=== PATIENT | female | born 1960 | race Caucasian/White ===

== ENCOUNTER 2016-08-30 08:07 | Emergency (ER) | payer OTHER ==
[~2016-08-30] VITALS: Ht 162.6 cm; Wt 77.1 kg
[~2016-08-30 08:07] MED LIST: DOXYCYCLINE HY100 M4 PO; LEVOTHYROXINE75 MCG PO
--- NOTE | 2016-08-30 08:25 | ED AMS/SEIZURE/WEAK/DIZZY ---
History of Present Illness General Chief Complaint: Dizziness Stated Complaint: DIZZINESS CHEST PRESSURE Source: patient, old records Exam Limitations: no limitations Vital Signs & Intake/Output Vital Signs & Intake/Output Vital Signs Date Time Temp Pulse Resp B/P Pulse O2 O2 Flow FiO2 Ox Delivery Rate 08/30 0956 97.6 50 16 136/61 98 Room Air 08/30 0815 98.3 63 20 166/91 98 Room Air Allergies Coded Allergies: sulfamethoxazole (From BACTRIM) (Severe, RASH, "FELT SICK" 08/30/16) trimethoprim (From BACTRIM) (Severe, RASH, "FELT SICK" 08/30/16) Reconcile Medications Ergocalciferol (Vitamin D2) (Vitamin D2) 50,000 UNIT CAPSULE 1 CAP PO QMON SUPPLEMENT (Reported) Levothyroxine Sodium 88 MCG TABLET 1 TAB PO DAILY AC THYROID (Reported) Triage Note: TRIAGE: PT TO ER C/C S/S OF FEELING TIRED, LIGHTHEADED/DIZZY, "A FEELING IN MY CHEST BUT IT'S NOT PAIN, BLOATING IN HANDS AND BACK OF NECK IS "IRRITATED". DENIES ANY PAIN WHEN ASKED TO RATE PAIN OR DISCOMFORT 0/10. -SOB, -DIAPHORESIS. WAS REFERRED TO DR MORALES X 1 YR FOR EPISODE OF LOW HEART RATE. HAD STRESS TEST WHICH WAS "GOOD". HAD EKG IN [place] PRIOR TO TRIAGE Triage Nurses Notes Reviewed? yes Onset: Gradual Duration: constant, waxing and waning Timing: recent history Injury Environment: home Severity: mild Severity Numbers: 5 No Modifying Factors: none Associated Symptoms: lightheadedness HPI: 55-year-old female history of hypothyroid presents emergency room complaining of feeling lethargic, lightheaded for the past 5 days associated with a 2 day history of a "funny feeling in her chest" the patient denies pain pressure or heaviness over her chest and cannot explain the sensation she has intermittently. The symptoms came on while at rest yesterday. She denies worsening of symptoms with treated physician. No change in her appetite or nausea vomiting abdominal pain fever or chills cough congestion. No sick contacts recent travel. The patient has a history of a resting bradycardia for which she states she's been seen by Dr. Morales within the past year and had a negative stress test at that time. She recently had her Synthroid increased to 80 mg within the past 1 month. There are no other modifying factors or associated symptoms otherwise no black or bloody stools. Past History Travel History Traveled to [place] past 21 day No Medical History Any Pertinent Medical History? see below for history Neurological: NONE EENT: NONE Cardiovascular: bradycardia Respiratory: NONE Gastrointestinal: NONE Hepatic: NONE Renal: NONE Musculoskeletal: NONE Psychiatric: NONE Endocrine: hypothyroidism Blood Disorders: NONE Cancer(s): NONE RESEARCH PHARMACIST/Reproductive: NONE Surgical History Surgical History: non-contributory Psychosocial History What is your primary language Brazilian Tobacco Use: Never used ETOH Use: occasional use Illicit Drug Use: denies illicit drug use Family History Hx Contributory? No Review of Systems Review of Systems Constitutional: Reports: see HPI. All Other Systems: Reviewed and Negative Comments Review of systems: See HPI, All other systems negative. Constitutional, no chills no fever, no malaise no weight loss HEENT: No visual changes no sore throat no congestion, no ear pain Cardiovascular: No chest pain , no palpitation , no orthopnea no ankle swelling Skin, no jaundice no rashes, no change in skin Respiratory: No dyspnea no cough no sputum no hemoptysis GI: No nausea no vomiting, no diarrhea, no bloating/constipation : No dysuria No hematuria, no frequency, Muscle skeletal: No joint pain, no joint swelling, no back pain, no neck pain, Neurologic: No numbness no confusion, no headache Psych: stress . Heme/endocrine: No bruising no bleeding no polyuria no polydipsia Immunology: No lymphadenopathy, Physical Exam Physical Exam General Appearance: well developed/nourished, no apparent distress, alert, awake Comments: Well-developed well-nourished person in no acute distress HEENT: Normal EENT exam; PERRL, EOMI, no nystagmus. HEAD is atraumatic. moist mucous membranes. Neck: Supple, no lymphadenopathy, normal range of motion Back: Nontender, ull range of motion Cardiovascular: Regular rate and rhythms no murmurs rubs or gallops, normal JVP Respiratory: Chest nontender.There were no bony deformities, no asymmetry. No respiratory distress. Patient speaking in full complete sentences. Breath sounds clear to auscultation bilaterally: NO W/R/R Abdomen: Soft, nontender nondistended, no appreciable organomegaly. Normal bowel sounds. No rebound/guarding, Extremity: No edema, full range of motion of extremities Neuro: Alert oriented x3, motor sensory normal, There were no obvious focal neurologic abnormalities. Skin: No appreciable rash on exposed skin, skin is warm and dry. Psych: Mood and affect is normal, memory and judgment is normal. Core Measures ACS in differential dx? Yes CVA/TIA Diagnosis: No Severe Sepsis Present: No Septic Shock Present: No Progress Differential Diagnosis: arrythmia, anemia, benign positional vertigo, dehydration, drug intoxication, electrolyte imbalance, GI bleed, hypoglycemia, vertebrobasilar insuff, ami Plan of Care: Orders Procedure Date/time Status THYROID STIMULATING HORMONE 08/30 833 Complete URINALYSIS 08/30 826 Complete Telemetry/Printed Circuit Boards Laminator 08/30 825 Active TROPONIN LEVEL 08/30 825 Complete MAGNESIUM 08/30 825 Complete COMPREHENSIVE METABOLIC PANEL 08/30 825 Complete CBC WITHOUT DIFFERENTIAL 08/30 825 Complete B-TYPE NATRIURETIC PEP (BNP) 08/30 825 Complete EKG 08/30 808 Active Laboratory Tests 08/30/16 0834: Anion Gap 7, Estimated GFR > 60, BUN/Creatinine Ratio 16.3, Glucose 106 H, Calcium 10.0, Magnesium 1.8, Total Bilirubin 0.5, AST 24, ALT 36, Alkaline Phosphatase 86, Troponin I < 0.01, Irj-R-Irqmetbmher Pept 107, Total Protein 7.6 , Albumin 4.4, Globulin 3.2, Albumin/Globulin Ratio 1.4, TSH 1.780, CBC w Diff NO MAN DIFF REQ, RBC 4.50, MCV 87.5, MCH 29.1, RDW 12.6, MPV 7.1 L, Gran % 34.9 L, Lymphocytes % 52.4 H, Monocytes % 6.4, Eosinophils % 5.8 H, Basophils % 0.5, Absolute Granulocytes 2.6, Absolute Lymphocytes 3.8 H, Absolute Monocytes 0.5, Absolute Eosinophils 0.4, Absolute Basophils 0, PUBS MCHC 33.3 08/30/16 0830: Urinalysis LIGHT H, Urine Color YEL, Urine Clarity HAZY H, Urine pH 6.0, Ur Specific [place] 1.020, Urine Protein NEG, Urine Ketones NEG, Urine Nitrite NEG, Urine Bilirubin NEG, Urine Urobilinogen 0.2, Ur Leukocyte Esterase SMALL H, Ur Microscopic SEDIMENT EXAMINED, Urine WBC 5-10 H, Ur Epithelial Cells MOD H, Urine Bacteria FEW H, Urine Hemoglobin NEG, Urine Glucose NEG 08/30/16 0828: TSH Cancelled Labs ordered old records reviewed, case discussed with Dr. Brush who agrees the plan. 1020 I discussed with the patient at length all of her lab results she is feeling improved she's been normal sinus in the 60s to 70s on the monitor. Symptoms of present for greater than 48 hours I do not believe she requires repeat troponin and her lab work. She feels comfortable this plan I discussed with the patient at length all of their results. I had an extensive conversation regarding need for close follow up with their primary care physician this week as well as return precautions. I answered all of their questions, they feel comfortable with the plan and follow-up care. I discussed the medications that they will receive with the patient. I gave them signs and symptoms that could indicate an adverse reaction. I have advised them to limit their activities until they can see how they respond to the medication. (DILSHAD HERMAN,AME) Diagnostic Imaging: Viewed by Me: Radiology Read. Discussed w/RAD: Radiology Read. Radiology Impression: PATIENT: SELENA MORENO PRESENT AGE: 55 PATIENT ACCOUNT NO: [id number] : 56 LOCATION: [facility] ORDERING PHYSICIAN: AME HERMAN SERVICE DATE: 08/30/16 EXAM TYPE: RAD - XRY-CHEST XRAY, PA AND LATERAL EXAMINATION: XR CHEST CLINICAL INFORMATION: Evaluate for cardiomegaly. Chest heaviness. COMPARISON: None TECHNIQUE: 2 views of the chest were obtained. FINDINGS: Normal cardiomediastinal silhouette. Lungs are clear. Bony thorax is intact. IMPRESSION: No acute pulmonary disease. DICTATED BY: RYAN MONTE MD DATE/TIME DICTATED:08/30/16857 TIPPLE ENGINEER:LETA DATE/TIME TRANSCRIBED:08/30/16857 CONFIDENTIAL, DO NOT COPY WITHOUT APPROPRIATE AUTHORIZATION. <Electronically signed in Other Vendor System> SIGNED BY: RYAN MONTE MD 08/30/16 0902 Initial ED EKG: normal sinus at 70, no acute ST segment changes and normal axis Prior EKG: unchanged (01/2015) Rhythm Strip: normal sinus rhythm (60s) Departure Departure Time of Disposition: 1017 Disposition: HOME OR SELF CARE Condition: Stable Clinical Impression Primary Impression: Lightheadedness Referrals: CONNOR PALMA,RO Phillips (PCP/Family) Additional Instructions: Follow-up with your primary care physician this week. Continue taking your medication as prescribed and return to ER anytime sooner if any concerns. Departure Forms: Customer Survey General Discharge Information ED Attending Observation Initial Observation Note: I have seen and personally examined SELENA MORENO on 08/30/16 at 0859. I agree with the current emergency department documentation. The disposition (admission or discharge) is uncertain at this time, she needs a period of observation for the following reason(s): The ED Nurse caring for this patient has been personally informed as to what the patient is being observed for.
[2016-08-30 08:41] LABS: ABSOLUTE BASOPHIL COUNT 0 /CUMM (0.0-0.2); ABSOLUTE EOSINOPHIL COUNT 0.4 /CUMM (0.0-0.7); ABSOLUTE GRANULOCYTE CT 2.6 /CUMM (1.4-6.5); ABSOLUTE LYMPH COUNT 3.8 /CUMM (1.2-3.4); ABSOLUTE MONOCYTE COUNT 0.5 /CUMM (0.10-0.60); BASOPHIL % 0.5 % (0.0-2.0); EOSINOPHIL % 5.8 % (0-5); HEMATOCRIT 39.4 % (37-47); MEAN CORPUSCULAR HGB 29.1 PG (27.0-31.0); MEAN CORPUSCULAR HGB CONC 33.3 G/DL (33.0-37.0); MEAN CORPUSCULAR VOLUME 87.5 FL (81.0-99.0); MEAN PLATELET VOLUME 7.1 FL (7.4-10.4); RBC DISTRIBUTION WIDTH 12.6 % (11.5-14.5); WHITE BLOOD CELL COUNT 7.3 /CUMM (4.8-10.8)
[2016-08-30] MEDS ORDERED: LEVOTHYROXINE88 MCG PO (08:58)
[2016-08-30] MEDS ORDERED: VITAMIN D250000 UNIT PO (08:59)
--- NOTE | 2016-08-30 09:02 | RADIOLOGY REPORT ---
EXAMINATION: XR CHEST CLINICAL INFORMATION: Evaluate for cardiomegaly. Chest heaviness. COMPARISON: None TECHNIQUE: 2 views of the chest were obtained. FINDINGS: Normal cardiomediastinal silhouette. Lungs are clear. Bony thorax is intact. IMPRESSION: No acute pulmonary disease.
[2016-08-30 09:06] LABS: PLATELET COUNT 355 /CUMM (130-400)
[2016-08-30 09:07] LABS: GRANULOCYTE % 34.9 % (42.2-75.2)
[2016-08-30 09:56] VITALS: BP 136/61
== END 2016-08-30 10:24 ==
LOC: ERH 08:07
PROVIDERS: Physician Assistant Medical
DX: R42 Dizziness and giddiness (principal); R07.89 Other chest pain
CPT/HCPCS: 81001; 93005; 93010

== ENCOUNTER 2017-07-30 07:47 | Emergency (ER) | payer OTHER ==
[~2017-07-30] VITALS: Ht 165.1 cm; Wt 69.4 kg
[~2017-07-30 07:47] MED LIST changes: +LEVOTHYROXINE88 MCG PO; +VITAMIN D250000 UNIT PO
--- NOTE | 2017-07-30 08:43 | ED GENERAL ADULT ---
History of Present Illness General Chief Complaint: General Adult Stated Complaint: PT FEELS TINGLING ARMS, "FEELS WEIRD IN CHEST" Source: patient, family Exam Limitations: no limitations Vital Signs & Intake/Output Vital Signs & Intake/Output Vital Signs Date Time Temp Pulse Resp B/P B/P Pulse O2 O2 Flow FiO2 Mean Ox Delivery Rate 07/30 1130 97.7 52 12 128/68 99 Room Air 07/30 0800 96.9 48 16 168/90 96 Room Air Allergies Coded Allergies: sulfamethoxazole (From BACTRIM) (Severe, RASH, "FELT SICK" 08/30/16) trimethoprim (From BACTRIM) (Severe, RASH, "FELT SICK" 08/30/16) Reconcile Medications Ergocalciferol (Vitamin D2) (Vitamin D2) 50,000 UNIT CAPSULE 1 CAP PO QMON SUPPLEMENT (Reported) Levothyroxine Sodium 88 MCG TABLET 1 TAB PO DAILY AC THYROID (Reported) Triage Note: PT TO ED FOR ARM TINGLING AND CHEST "FUNNY FEELING" SINCE SEEING DR MORALES ON TUESDAY, PT REPORTING SHE HAS A HX OF BRADYCARDIA (NORMAL RATE 46-49) AND SEES HIM EVERY THREE MONTHS. REPORTING THEY HAD A DISCUSSION ABOUT POSSIBLY PLACING A PACEMAKER AND SINCE THAT APT "I'VE JUST FELT WIERD" DENIES ANY CP, SOB, KEITH, DIZZINESS. Triage Nurses Notes Reviewed? yes Onset: Abrupt Duration: hour(s): Timing: recent history HPI: 07/30/17 9 AM 56-year-old female presents to the emergency department for aching chest pain, back pain, and bilateral arm numbness. She says that she has a history of bradycardia and saw Dr. Morales on Tuesday. She also admits to kiya torrez on Tuesday. She says she felt fine however when she saw Dr. Morales immediately afterwards when she was told that she might need a pacemaker she started to develop dull aching and her chest. Currently she feels somewhat better. She also has a history of hypothyroidism. Past History Travel History Traveled to [place] past 21 day No Medical History Any Pertinent Medical History? see below for history Neurological: NONE EENT: NONE Cardiovascular: bradycardia Respiratory: NONE Gastrointestinal: NONE Hepatic: NONE Renal: NONE Musculoskeletal: NONE Psychiatric: NONE Endocrine: hypothyroidism Blood Disorders: NONE Cancer(s): NONE SURGICAL COORDINATOR/Reproductive: NONE Surgical History Surgical History: tubal ligation Psychosocial History What is your primary language Telugu Tobacco Use: Never used ETOH Use: denies use Illicit Drug Use: denies illicit drug use Family History Hx Contributory? No Review of Systems Review of Systems Constitutional: Denies: fever. EENTM: Reports: no symptoms. Respiratory: Denies: short of breath. Cardiovascular: Reports: see HPI. GI: Denies: abdominal pain. Genitourinary: Reports: no symptoms. Musculoskeletal: Reports: see HPI. Skin: Denies: rash. Neurological/Psychological: Reports: see HPI. Hematologic/Endocrine: Reports: no symptoms. Immunologic/Allergic: Reports: no symptoms. Physical Exam Physical Exam General Appearance: well developed/nourished, alert, awake, anxious Head: atraumatic, normal appearance Eyes: Bilateral: normal appearance, PERRL, EOMI. Ears, Nose, Throat: normal pharynx, normal ENT inspection Neck: normal inspection, supple, full range of motion Respiratory: normal breath sounds, chest non-tender, no respiratory distress Cardiovascular: BRADYCARDIA , REGULAR Peripheral Pulses: 4+ radial (R), 4+ radial (L) Gastrointestinal: soft, non-tender Back: normal inspection, normal range of motion Extremities: normal inspection, normal range of motion, no edema Neurologic/Psych: no motor/sensory deficits, awake, alert, oriented x 3 Skin: intact, normal color Core Measures ACS in differential dx? Yes CVA/TIA Diagnosis: No Sepsis Present: No Sepsis Focused Exam Completed? No Progress Differential Diagnoses I considered the following diagnoses in my evaluation of the patient: [ Symptomatic bradycardia, acute coronary syndrome, cervical radiculopathy, aortic dissection] Plan of Care: Orders Procedure Date/time Status Add-on Test (ER Only) 07/30 0927 Active THYROID STIMULATING HORMONE 07/30 0850 Complete TROPONIN LEVEL 07/30 0843 Complete COMPREHENSIVE METABOLIC PANEL 07/30 0843 Complete CBC WITHOUT DIFFERENTIAL 07/30 0843 Complete EKG 07/30 0750 Active Laboratory Tests 07/30/17 0850: Anion Gap 14, Estimated GFR > 60, BUN/Creatinine Ratio 28.9 H, Glucose 94, Calcium 9.8, Total Bilirubin 0.3, AST 22, ALT 27, Alkaline Phosphatase 78, Troponin I < 0.01, Total Protein 7.5, Albumin 4.4, Globulin 3.1, Albumin/ Globulin Ratio 1.4, TSH 3.660, CBC w Diff NO MAN DIFF REQ, RBC 4.74, MCV 87.9, MCH 29.2, MCHC 33.3, RDW 12.6, MPV 7.4, Gran % 37.9 L, Lymphocytes % 50.8, Monocytes % 5.1, Eosinophils % 5.5 H, Basophils % 0.7, Absolute Granulocytes 3.0, Absolute Lymphocytes 4.1 H, Absolute Monocytes 0.4, Absolute Eosinophils 0.4, Absolute Basophils 0.1 Initial ED EKG: nonspecific ST T wave chg, SINUS BRADYCARDIA Prior EKG: unchanged Departure Departure Disposition: STILL A PATIENT Condition: Stable Clinical Impression Primary Impression: Chest pain Referrals: Frieda Ray MD (PCP/Family) Departure Forms: Customer Survey General Discharge Information Comments 07/30/17 11:40 AM Patient asymptomatic. Her symptoms have been ongoing since Tuesday evening. Troponin is nondetectable. She has no active chest pain. I discussed the case with Dr. Morales who agreed with the plan of care she will follow-up with him on Tuesday.PATIENT: SELENA MORENO PRESENT AGE: 56 PATIENT ACCOUNT NO: [id number] : 56 LOCATION: [facility] ORDERING PHYSICIAN: Miki Cornejo DO SERVICE DATE: 07/30/17 EXAM TYPE: RAD - XRY-PORTABLE CHEST XRAY EXAMINATION: XR PORTABLE CHEST CLINICAL INFORMATION: Chest pain. COMPARISON: 08/30/2016. TECHNIQUE: Portable frontal view of the chest was obtained. FINDINGS: No significant abnormality is noted involving the heart, lungs, mediastinum, bony thorax or soft tissues. IMPRESSION: Unremarkable examination, unchanged since 08/30/2016. DICTATED BY: Josafat Reeves MD DATE/TIME DICTATED:07/30/17958 TRIM CARPENTER:LETA DATE/TIME TRANSCRIBED:07/30/17958 CONFIDENTIAL, DO NOT COPY WITHOUT APPROPRIATE AUTHORIZATION. <Electronically signed in Other Vendor System> SIGNED BY: Josafat Reeves MD 07/30/17 1004 She denied ever having any chest pain. She said that she had some neck stiffness and paresthesias in the arms. She also has a history of cervical radiculopathy. The case was reviewed with Dr. Morales who agreed with the plan of care. Critical Care Note Critical Care Note Critical Care Time: non-applicable
[2017-07-30 09:09] LABS: ABSOLUTE BASOPHIL COUNT 0.1 /CUMM (0.0-0.2); ABSOLUTE EOSINOPHIL COUNT 0.4 /CUMM (0.0-0.7); ABSOLUTE LYMPH COUNT 4.1 /CUMM (1.2-3.4); ABSOLUTE MONOCYTE COUNT 0.4 /CUMM (0.10-0.60); BASOPHIL % 0.7 % (0.0-2.0); EOSINOPHIL % 5.5 % (0-5); GRANULOCYTE % 37.9 % (42.2-75.2); HEMATOCRIT 41.7 % (37-47); MEAN CORPUSCULAR HGB 29.2 PG (27.0-31.0); MEAN CORPUSCULAR HGB CONC 33.3 G/DL (33.0-37.0); MEAN CORPUSCULAR VOLUME 87.9 FL (81.0-99.0); MEAN PLATELET VOLUME 7.4 FL (7.4-10.4); PLATELET COUNT 338 /CUMM (130-400); RBC DISTRIBUTION WIDTH 12.6 % (11.5-14.5); RED BLOOD CELL CT 4.74 /CUMM (4.20-5.40)
[2017-07-30 09:32] LABS: WHITE BLOOD CELL COUNT 8.1 /CUMM (4.8-10.8)
--- NOTE | 2017-07-30 10:04 | RADIOLOGY REPORT ---
EXAMINATION: XR PORTABLE CHEST CLINICAL INFORMATION: Chest pain. COMPARISON: 08/30/2016. TECHNIQUE: Portable frontal view of the chest was obtained. FINDINGS: No significant abnormality is noted involving the heart, lungs, mediastinum, bony thorax or soft tissues. IMPRESSION: Unremarkable examination, unchanged since 08/30/2016.
[2017-07-30 11:30] VITALS: BP 128/68
== END 2017-07-30 11:56 ==
LOC: ERH 07:47
PROVIDERS: Emergency Medicine
DX: R07.9 Chest pain, unspecified (principal); E03.9 Hypothyroidism, unspecified
CPT/HCPCS: 71045; 93005; 93010

== ENCOUNTER 2017-10-31 12:47 | Emergency (ER) | payer OTHER ==
[~2017-10-31] VITALS: Ht 162.6 cm; Wt 68.9 kg
[~2017-10-31 12:47] MED LIST changes: +AUGMENTIN 500-1 EACH PO
--- NOTE | 2017-10-31 14:03 | ED SKIN/ALLERGY COMPLAINT ---
History of Present Illness General Chief Complaint: Allergy Symptoms Stated Complaint: ?ALLERGIC REACTION TO AUGMENTING, RASH ALL OVER Source: patient, family, old records Exam Limitations: no limitations Vital Signs & Intake/Output Vital Signs & Intake/Output Vital Signs Date Time Temp Pulse Resp B/P B/P Pulse O2 O2 Flow FiO2 Mean Ox Delivery Rate 10/31 1453 99.0 58 20 102/51 98 Room Air 10/31 1342 98 Room Air 10/31 1254 98.1 79 18 100/61 99 Room Air Allergies Coded Allergies: sulfamethoxazole (From BACTRIM) (Severe, RASH, "FELT SICK" 08/30/16) trimethoprim (From BACTRIM) (Severe, RASH, "FELT SICK" 08/30/16) amoxicillin (From AUGMENTIN) (RASH 10/31/17) clavulanic acid (From AUGMENTIN) (RASH 10/31/17) Reconcile Medications Augmentin (Augmentin 500-125 Tablet) 500 MG-125 MG TABLET 1 TAB PO TID INFECTION Diphenhydramine HCl (Benadryl Allergy) 25 MG TABLET 1-2 TAB PO Q6P PRN itchy rash Ergocalciferol (Vitamin D2) (Vitamin D2) 50,000 UNIT CAPSULE 1 CAP PO QMON SUPPLEMENT (Reported) Famotidine (Pepcid) 20 MG TABLET 1 TAB PO BID allergy Levothyroxine Sodium 88 MCG TABLET 1 TAB PO DAILY AC THYROID (Reported) Prednisone 20 MG TABLET 1 TAB PO BID allergic rx Triage Note: 56 Y/O FEMALE C/O RASH TO ENTIRE BODY SINCE LAST EVENING. WOKE TODAY WITH FINE RED RASH TO ENTIRE BODY. KNOWN ALLERGY TO BACTRIM WITH SAME REACTION. 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 LAST DOSE AUGMENTIN LAST EVENING. SPEAKING CLEARLY WITH NO RESP DISTRESS NOTED Triage Nurses Notes Reviewed? yes Onset: Evening Duration: minute(s): ([id number]) Timing: recent history Severity: moderate Location: generalized Possible Factors: medications Modifying Factors: Improves With: scratching. Associated Symptoms: change in skin texture, rash LMP (ages 10-50): post menopausal : No Patient currently breastfeeds: No HPI: The patient is being treated for sialoadenitis with Augmentin that is greatly improved. 1 day prior to admission she complains of increasing itchy generalized rash. She denies fever chills nausea vomiting diarrhea abdominal pain chest pain shortness breath headache dysuria bleeding new soap shampoo detergent. Past History Travel History Traveled to [place] past 21 day No Medical History Any Pertinent Medical History? see below for history Neurological: NONE EENT: NONE Cardiovascular: bradycardia Respiratory: NONE Gastrointestinal: NONE Hepatic: NONE Renal: NONE Musculoskeletal: NONE Psychiatric: NONE Endocrine: hypothyroidism Blood Disorders: NONE Cancer(s): NONE NETWORK STRATEGIST/Reproductive: NONE Surgical History Surgical History: tubal ligation Psychosocial History What is your primary language Kiswahili Tobacco Use: Never used Family History Hx Contributory? No Review of Systems Review of Systems Constitutional: Reports: no symptoms. EENTM: Reports: no symptoms. Respiratory: Reports: no symptoms. Cardiovascular: Reports: no symptoms. GI: Reports: no symptoms. Genitourinary: Reports: no symptoms. Musculoskeletal: Reports: no symptoms. Skin: Reports: see HPI, rash. Neurological/Psychological: Reports: no symptoms. Hematologic/Endocrine: Reports: no symptoms. Immunologic/Allergic: Reports: no symptoms. All Other Systems: Reviewed and Negative Physical Exam Physical Exam General Appearance: well developed/nourished, alert, awake, anxious, mild distress, obese Head: atraumatic, normal appearance Eyes: Bilateral: normal appearance, PERRL, EOMI. Ears, Nose, Throat: normal pharynx, normal ENT inspection, hearing grossly normal Neck: normal inspection, supple, full range of motion, no midline tenderness Respiratory: normal breath sounds, chest non-tender, no respiratory distress, quiet respiration, lungs clear Cardiovascular: regular rate/rhythm, normal peripheral pulses, norml femoral pulses equa Peripheral Pulses: 4+ carotid (R), 4+ carotid (L) Gastrointestinal: normal bowel sounds, soft, non-tender, no organomegaly Back: normal inspection, normal range of motion, no vertebral tenderness Extremities: normal inspection, normal capillary refill, normal range of motion, no edema, no ligament instability Neurologic/Psych: no motor/sensory deficits, awake, alert, oriented x 3, normal gait, normal mood/affect, 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 Skin: intact, normal color, rash Skin Problem Location: generalized Skin Problem Character: macules, papules, rash Lymphatic: no anterior cervical [place] Progress Differential Diagnosis: abscess/cellulitis, allergic reaction, contact dermatitis Plan of Care: Current Medications Sig/Seema Start time Last Medication Dose Stop Time Status Admin Sodium Chloride 1,000 ML BOLUS ONE 10/31 1315 AC 10/31 (Normal Saline 0.9%) 10/31 1414 1339 Departure Departure Time of Disposition: 1453 Disposition: HOME OR SELF CARE Condition: Stable Clinical Impression Primary Impression: Drug allergy Referrals: Frieda Ray MD (PCP/Family) Departure Forms: Customer Survey General Discharge Information Prescriptions: Current Visit Scripts Prednisone 1 TAB PO BID #10 TAB Famotidine (Pepcid) 1 TAB PO BID #10 TAB Diphenhydramine HCl (Benadryl Allergy) 1-2 TAB PO Q6P PRN itchy rash #30 TAB Ref 1
[2017-10-31 14:53] VITALS: BP 102/51
[2017-10-31] MEDS ORDERED: PEPCID20 M1 PO (14:56)
[2017-10-31] MEDS ORDERED: PREDNISONE20 M1 PO (14:56)
[2017-10-31] MEDS ORDERED: BENADRYL ALLERG25 M2 PO (14:56)
== END 2017-10-31 15:01 ==
LOC: ERH 12:47
DX: T36.0X5A Adverse effect of penicillins, initial encounter (principal)
CPT/HCPCS: 96374; 96375; J1200; J2930